=== PATIENT | male | born 1945 | race Caucasian/White ===

== ENCOUNTER 2024-08-17 15:25 | Emergency (ER) | payer MEDICARE, BC, SELFPAY ==
[2024-08-17 15:27] VITALS: BP 154/73
[2024-08-17 15:47] LABS: Urine Albumin Negative (Neg - Trace); Urine Bilirubin Negative (Negative); Urine Character Clear (Clear); Urine Color Yellow; Urine Glucose Negative (Negative); Urine Ketone Negative (Negative); Urine Leukocyte Negative (Negative); Urine Nitrite Negative (Negative); Urine Occult Blood Negative (Negative); Urine Urobilinogen Negative (Neg - 1+)
[2024-08-17 15:51] LABS: % Basophils 0.4 % (0-2); % Eosinophils 2.7 % (0-6); % Immature Granulocytes 0.2 % (0-0.5); % Lymphocytes 18.2 % (20.5-51.1); % Neutrophils 69.5 % (42.2-75.2); Absolute Basophils 0.1 10^3/uL (0-0.2); Absolute Eosinophils 0.3 10^3/uL (0-0.7); Absolute Lymphocytes 2.2 10^3/uL (1.2-3.4); Absolute Monocytes 1.1 10^3/uL (0.1-0.6); Absolute Neutrophils 8.5 10^3/uL (1.4-6.5); Hematocrit 41.5 % (39.0-52.0); Mean Corp Hgb Conc. 33.7 g/dL (33.0-37.0); Mean Corpuscular Hgb 31.2 pg (27.0-31.0); Mean Corpuscular Volume 92.4 fL (80.0-94.0); Mean Platelet Volume 9.8 fL (7.4-10.4); Nucleated Red Blood Cells % 0 % (-); Platelet Count 235 10^3/uL (130-400); Red Blood Cell Count 4.49 10^6/uL (4.70-6.10); Red Cell Dist. Width 13.4 % (11.5-14.5); White Blood Cell Count 12.2 10^3/uL (4.8-10.8)
[2024-08-17 16:04] LABS: ALT (SGPT) 27 U/L (0-50); AST (SGOT) 29 U/L (17-59); Albumin 4.7 g/dl (3.5-5.0); Alkaline Phosphatase 43 U/L (38-126); Blood Urea Nitrogen 14 mg/dl (9-20); Calcium 10.1 mg/dl (8.4-10.2); Carbon Dioxide 32 mmol/L (22-30); Chloride 104 mmol/L (98-107); Glucose 120 mg/dl (70-99); Lipase 136 U/L (23-300); Sodium 142 mmol/L (135-145); Total Bilirubin 1.1 mg/dl (0.2-1.3); eGFR > 60.00
--- NOTE | 2024-08-17 17:30 | ED.GENMED ---
History of Present Illness
General
Chief Complaint: Abdominal Pain
Source: patient
Exam Limitations: none
Time Seen by Provider: 08/17/24 17:19
Nursing documentation reviewed up to this point in time: agreed with
History of Present Illness
History of Present Illness:
78-year-old male presents to the emergency department complaining of lower abdominal pain and right lower back pain since last night. It started when he went to bed. He has never had pain like this before, but states he was told he has a hernia at
one point.
Past History
Past History
ED Past Medical History: Arrthythmia (Atrial fib), CAD, HTN, Hypercholesterolemia and [place]
ED Past Surgical History: Cardiac (CABG)
Social History
Tobacco: Former smoker
Alcohol: Occasional
Drug: None
Personal:
Living: with family
Review of Systems
Review of Systems
Allergies reviewed?: Yes
All Other Systems: Not applicable
Constitutional: Reports no symptoms
EENT: Reports no symptoms
Respiratory: Reports no symptoms
Cardiac: Reports no symptoms
ABD/GI: Reports abdominal pain
: Reports no symptoms
Musculoskeletal: Reports no symptoms
Skin: Reports no symptoms
Neurological: Reports no symptoms
Endocrine: Reports no symptoms
Hematologic/Lymphatic: Reports no symptoms
Psychiatric: Reports no symptoms
Phy Exam
Physical Exam
Physical Exam:
Physical Exam
General: no apparent distress, not acutely ill
Neck: supple. no meningeal signs. normal posterior pharynx
Heart: s1/s2 regular rate and rhythm, no murmur. equal radial
pulses.
HEENT: Pupils equal round reactive to light, EOMI
Lungs: no acute respiratory distress. clear bilaterally
Abdomen: normal bowel sounds. Bilateral lower abdominal tenderness
Neuro: alert and oriented. no focal neurological deficits cranial nerves II through XII intact
Skin: no rash
Psychiatric: well kept. interactive and cooperative
Extremities: no edema. no calf tenderness. negative homans. good distal pulses
Course
Orders/Labs/Results
Orders:
Orders
08/17/24 15:35
Complete Blood Count/With Diff Urgent
Comprehensive Metabolic Panel Urgent
Lipase Urgent
Urinalysis Reflex To Culture Urgent
Date Specimen was Collected: 08/17/24
Time Specimen was Collected: 15:29
08/17/24 17:27
CT Abd/pelvis W Iv Cont Urgent
Comment:
Reason For Exam: bilateral lower abdominal pain since last night
08/17/24 20:10
LevoFLOXacin [Levaquin] 750 mg PO NOW STA
MetroNIDAZOLE [Flagyl] 500 mg PO NOW STA
Abnormal Lab Results
08/17/24
15:35
WBC 12.2 H 10^3/uL
(4.8-10.8)
RBC 4.49 L 10^6/uL
(4.70-6.10)
MCH 31.2 H pg
(27.0-31.0)
Absolute Neuts (auto) 8.5 H 10^3/uL
(1.4-6.5)
Absolute Monos (auto) 1.1 H 10^3/uL
(0.1-0.6)
Lymphocytes % 18.2 L %
(20.5-51.1)
Carbon Dioxide 32 H mmol/L
(22-30)
Glucose 120 H mg/dl
(70-99)
08/17/24 15:35
08/17/24 15:35
Vital Signs
Initial and Last Documented VS:
Initial Vital Signs
Temp Pulse Resp BP Pulse Ox
98.9 F 77 16 154/73 98
08/17/24 15:27 08/17/24 15:27 08/17/24 15:27 08/17/24 15:27 08/17/24 15:27
Last Documented Vital Signs
Temp Pulse Resp BP Pulse Ox
98.9 F 83 18 173/81 96
08/17/24 15:27 08/17/24 19:38 08/17/24 19:38 08/17/24 20:00 08/17/24 20:02
MDM/Problems Addressed
Differential Diagnosis Includes:
Ureteral calculus, appendicitis, diverticulitis
MDM/Problems Addressed:
78-year-old male with acute sigmoid diverticulitis, no perforation or abscess. Treat with Levaquin and Flagyl.
*Radiology
Radiology exam reviewed: radiology read reviewed (CT abdomen pelvis shows acute sigmoid diverticulitis, 6 mm calculus in left posterior urinary bladder lumen)
*Pulse Oximetry
Patient hypoxic: no
*Critical Care Note
Total Time (30-74mins, 75-104mins- exclusive of procedures): Not Applicable
Patient Management
Social determinants of health affecting care: Living situation and Strong social support
Escalation/DeEscalation of care consider admission/obs:
Admit not indicated
ED Attending Note
-
Portions of this chart may have been created with voice recognition software.� Occasional wrong word or��sound alike� substitutions may have occurred due to the inherent limitations of voice recognition software.
Discharge Plan
Departure
Patient Disposition: Home (Routine Discharge)
Date of Disposition: 08/17/24
Time of Disposition: 20:15
Patient with high blood pressure during this ER visit?: Yes
Condition: Good
Discharge Problem:
Sigmoid diverticulitis
Instructions: Diverticulitis (DC), Kidney Stones (DC), BLOOD PRESSURE
Prescriptions:
New
metronidazole 500 mg tablet
500 mg PO TID Qty: 29 0RF
levofloxacin 750 mg tablet
750 mg PO DAILY 9 Days Qty: 9 0RF
No Action
atorvastatin 10 MG tablet
80 mg PO HS
coenzyme Q10 10 MG capsule
10 mg PO HS
omeprazole 40 MG capsule,delayed release(DR/EC)
40 mg PO HS
Nicolasa-C 1,000 mg Tablet
500 mg PO HS
Fish Oil 1,000 mg Softgel
500 units PO HS
alfuzosin 10 MG tablet extended release 24 hr
10 mg PO HS
tadalafil [Cialis] 5 MG tablet
5 mg PO HS
pu-ofb-wtaus-I0-cdtowbc-zhsfzg [Centrum Silver Men] 1 EACH tablet
1 ea PO HS
hydrocodone-acetaminophen 1 TABLET tablet
1 - 2 tab PO Q4HPRN PRN (Reason: pain) Qty: 15 0RF
amoxicillin-pot clavulanate 1 TABLET tablet
1 tab PO Q12 7 Days Qty: 14 0RF
benzocaine-menthol [Cepacol Sore Throat (asia-men)] 1 LOZENGE lozenge
1 edgar PO Q1HPRN PRN (Reason: sore throat) 0RF
apixaban [Eliquis] 5 MG tablet
5 mg PO BID 0RF
acetaminophen 325 MG tablet
650 mg PO Q4HPRN PRN (Reason: mild pain) 0RF
metoprolol succinate 50 MG tablet extended release 24 hr
75 mg PO HS 0RF
fenofibrate nanocrystallized 145 MG tablet
145 mg PO HS 0RF
Referrals:
UNKNOWN - PT DOES,NOT KNOW [Family Provider]
Interventions
Interventions:
*Risk Screen - Suicide Last Done: 08/17/24 15:27
*General Assessment Last Done: 08/17/24 15:27
*Neglect/Abuse Screening Last Done: 08/17/24 15:27
*ED- Fall Risk Assessment Last Done: 08/17/24 15:27
*ED COVID-19 Vaccine History Last Done: 08/17/24 15:27
CA-Bwsufn-Vpertegqay Assessment Last Done: 06/07/25 17:18
Discharge Date and Time
Print Language: UKRAINIAN
[2024-08-17 18:00] VITALS: BP 143/75
[2024-08-17 18:47] VITALS: BP 160/80
[2024-08-17 19:00] VITALS: BP 161/79
[2024-08-17 20:00] VITALS: BP 173/81
[2024-08-17] MEDS: FLAGYL 500 MG PO (20:17)
[2024-08-17] MEDS: LEVAQUIN 750 MG PO (20:17)
== END 2024-08-17 20:21 | disposition home or self-care (01) ==
LOC: EMR 15:25
PROVIDERS: Student in an Organized Health Care Education/Training Program; EMERGENCY PHYSICIAN Emergency Medicine
DX: K57.32 Diverticulitis of large intestine without perforation or abscess without bleeding (principal); I25.10 Atherosclerotic heart disease of native coronary artery without angina pectoris; E78.00 Pure hypercholesterolemia, unspecified; I10 Essential (primary) hypertension; Z95.1 Presence of aortocoronary bypass graft; Z87.891 Personal history of nicotine dependence
CPT/HCPCS: 99284; 74177; 80053; 81003; 83690; 85025; Q9967

== ENCOUNTER 2024-08-20 15:41 | Inpatient (IN) | payer MEDICARE, BC, SELFPAY ==
[2024-08-20 11:14] VITALS: BP 175/76
[2024-08-20] MEDS: DILAUDID 1 MG IV (12:00)
[2024-08-20] MEDS: NSS 1000 IV ×2 (12:00→16:52)
[2024-08-20] MEDS: ZOFRAN 4 MG IV ×2 (12:00→16:49)
[2024-08-20 12:02] VITALS: BP 148/77; BMI 31.5
[2024-08-20 12:02] LABS: % Basophils 0.7 % (0-2); % Eosinophils 4.7 % (0-6); % Immature Granulocytes 0.1 % (0-0.5); % Lymphocytes 23.6 % (20.5-51.1); % Monocytes 8.5 % (1.7-9.3); % Neutrophils 62.4 % (42.2-75.2); Absolute Basophils 0.1 10^3/uL (0-0.2); Absolute Eosinophils 0.4 10^3/uL (0-0.7); Absolute Lymphocytes 1.7 10^3/uL (1.2-3.4); Absolute Monocytes 0.6 10^3/uL (0.1-0.6); Absolute Neutrophils 4.6 10^3/uL (1.4-6.5); Hematocrit 44.4 % (39.0-52.0); Hemoglobin 14.8 g/dL (13.0-18.0); Mean Corp Hgb Conc. 33.3 g/dL (33.0-37.0); Mean Corpuscular Hgb 30.6 pg (27.0-31.0); Mean Corpuscular Volume 91.7 fL (80.0-94.0); Mean Platelet Volume 9.9 fL (7.4-10.4); Nucleated Red Blood Cells % 0 % (-); Platelet Count 261 10^3/uL (130-400); Red Blood Cell Count 4.84 10^6/uL (4.70-6.10); Red Cell Dist. Width 13.2 % (11.5-14.5); White Blood Cell Count 7.4 10^3/uL (4.8-10.8)
--- NOTE | 2024-08-20 12:03 | ED.GENMED ---
History of Present Illness
General
Chief Complaint: Abdominal Pain
Source: patient
Exam Limitations: none
Time Seen by Provider: 08/20/24 11:32
Nursing documentation reviewed up to this point in time: agreed with
History of Present Illness
History of Present Illness:
78 y/o M with AF on eliquis, HTN, HLD
here 3 days ago for diverticulitis, lower abd pain
he was put on levaquin, flagyl and he took meds as instructed on 08/18 but then he really felt wiped out yesterday, nauesated and didn't take the flagyl and only the levaquin
he has not had diarrhea
low appetite and nausea
ate some yesterday minimally (soup)
says his pain is worse today with lower abd and now back pain
no dysuria, hematuria
Past History
Past History
ED Past Medical History: Arrthythmia (Atrial fib), CAD, HTN, Hypercholesterolemia and [place]
ED Past Surgical History: Cardiac (CABG)
Social History
Tobacco: Former smoker
Alcohol: Occasional
Drug: None
Personal:
Living: with family
Review of Systems
Review of Systems
Allergies reviewed?: Yes
All Other Systems: Not applicable
Phy Exam
Physical Exam
Physical Exam:
GENERAL: Alert , in no apparent distress
EYE: pupils equal and reactive
NECK: Supple
ENT: o/p clr, mmm.
CARDIAC: Regular rate and rhythm .
LUNGS: Clear breath sounds bilaterally, no acute respiratory distress, no wheezes/rales/rhonchi
ABDOMEN: Soft, mod lower abd tendrness, diffuse abd tendenress mild; mild voluntary guarding; no rebound
NEUROLOGICAL: Alert and oriented, no focal neuro deficits
SKIN: Warm and dry, skin intact.
MUSCULOSKELETAL: No edema, well perfused.
PSYCH: Normal and appropriate interaction.
Course
Orders/Labs/Results
Orders:
Orders
08/20/24 11:45
CT Abd/Pel (IV only)-DH only Urgent
Comment:
Reason For Exam: WORSENING LOW ABD PAIN, DIVERTIC
0.9% Sodium Chloride 1000 ml [Nss] 1,000 ml IV BOLUS
HYDROmorphone [Dilaudid] 1 mg IV NOW STA
Ondansetron Injectable [Zofran] 4 mg IV NOW STA
08/20/24 11:55
Complete Blood Count/With Diff Urgent
Comprehensive Metabolic Panel Urgent
Lactic Acid Urgent
Lipase Urgent
08/20/24 13:59
Urinalysis Reflex To Culture Urgent
Date Specimen was Collected: 08/20/24
Time Specimen was Collected: 11:51
Urine Microscopic Reflex Cult Urgent
Urine Culture Urgent
SHADI Source: U
Specimen Description:
Date Specimen was Collected: 08/20/24
Time Specimen was Collected: 11:51
08/20/24 14:37
Ampicillin/Sulbactam 3 G [Unasyn] 3 gm 0.9% Sodium Chloride 100 ml [Nss] 100 ml IV NOW
08/20/24 15:17
Admit/Transfer Patient As Directed
Co-Sign Provider:
Level of Care: Inpatient admission
Assign to:: Medical/Surgical
Physician / Group: [email or web address]
Diagnosis: Acute uncomplicated diverticulitis, Nausea due to Metronidazole
Reason for Hospitalization: Acute uncomplicated diverticulitis
Nausea is likely due to Metronidazole
lower abdominal pain
Expected length of stay greater than two midnights?: Yes
ELOS- Estimated Length of Stay in days: 3
I certify the patient meets the requirements for IP care: Yes
08/20/24 15:19
Code Status As Directed
Resuscitation Status: Full Code
Abnormal Lab Results
08/20/24 08/20/24
11:55 13:59
Glucose 154 H mg/dl
(70-99)
Leukocyte Esterase Rfl 1+ A
(Negative)
Urine Albumin (Reflex) 1+ A
(Neg - Trace)
08/20/24 11:55
08/20/24 11:55
Vital Signs
Initial and Last Documented VS:
Initial Vital Signs
Temp Pulse Resp BP Pulse Ox
36.9 C 68 20 175/76 96
08/20/24 11:14 08/20/24 11:14 08/20/24 11:14 08/20/24 11:14 08/20/24 11:14
Last Documented Vital Signs
Temp Pulse Resp BP Pulse Ox
36.9 C 64 18 148/77 92
08/20/24 11:14 08/20/24 12:02 08/20/24 12:02 08/20/24 12:02 08/20/24 12:15
MDM/Problems Addressed
Differential Diagnosis Includes:
divertic, perf
MDM/Problems Addressed:
crystal rose 78 y/o M h/o CABG, af/pacer on eliquis
came in on sat for lower abd pain
ct showed acute sig divertic
given levaquin/flagyl
says he has worse pain lower back and lower abd and nausea/and feels like he cannot tolearte the abx
no fever
wbc normal cr normal
mod tenderness in suprapubic region
so i did rescan to be sure no perf; the divertic looks stable; they had seen a calcification 6 mm that looked to be in the bladder on the 1st scan
this radiologist thinks it's actually L UVJ but nonobstructing; could be contributing to pain worsening
d/w urologist dr. roberts who didn't thnk that the 6 mm distal stone would be causing the abd pain
likely due to divertic
reassessed, pt still having nauesa/pain
[facility] admit
unasyn
*Critical Care Note
Total Time (30-74mins, 75-104mins- exclusive of procedures): Not Applicable
ED Attending Note
-
Portions of this chart may have been created with voice recognition software.� Occasional wrong word or��sound alike� substitutions may have occurred due to the inherent limitations of voice recognition software.
Discharge Plan
Departure
Patient Disposition: Admit
Date of Disposition: 08/20/24
Time of Disposition: 14:26
Admit to: Med/Surg
Presentation/result/management discussed w/ accepting MD/DO: Hospitalist
Condition: Fair
Covid-19: Not Applicable
Discharge Problem:
Failure of outpatient treatment, Diverticulitis
Interventions
Interventions:
*Risk Screen - Suicide Last Done: 08/20/24 11:14
*General Assessment Last Done: 08/20/24 11:14
*Neglect/Abuse Screening Last Done: 08/20/24 11:14
*ED- Fall Risk Assessment Last Done: 08/20/24 12:06
JM-Bylwgg-Ptmisyheex Assessment Last Done: 08/20/24 12:02
[2024-08-20 12:14] LABS: ALT (SGPT) 30 U/L (0-50); AST (SGOT) 37 U/L (17-59); Albumin 4.6 g/dl (3.5-5.0); Alkaline Phosphatase 51 U/L (38-126); Blood Urea Nitrogen 16 mg/dl (9-20); Calcium 9.5 mg/dl (8.4-10.2); Carbon Dioxide 24 mmol/L (22-30); Chloride 106 mmol/L (98-107); Estimated Creatinine Clearance 84 ml/min; Glucose 154 mg/dl (70-99); Lipase 121 U/L (23-300); Potassium 4.4 mmol/L (3.5-5.1); Sodium 140 mmol/L (135-145); eGFR > 60.00
[2024-08-20 12:16] LABS: Lactic Acid 0.9 mmol/L (0.7-2.0)
[2024-08-20 14:06] LABS: Urine Albumin 1+ (Neg - Trace); Urine Bilirubin Negative (Negative); Urine Character Clear (Clear); Urine Color Yellow; Urine Glucose Negative (Negative); Urine Ketone Negative (Negative); Urine Leukocyte 1+ (Negative); Urine Nitrite Negative (Negative); Urine Occult Blood Negative (Negative); Urine Urobilinogen Negative (Neg - 1+)
[2024-08-20 14:25] LABS: Urine Red Blood Cell 0-2 /HPF (0-2); Urine Squamous Cell 0-2 /LPF (Few)
[2024-08-20] MEDS: UNASYN IV ×2 (15:05→22:01)
--- NOTE | 2024-08-20 15:12 | HPS.HSE ---
Family Physician
-
Family Physician: Solomon Parker
Chief Complaint
-
nausea, poor appetite
History of Present Illness
HPI
78F HX CADS/CABG,ND, A Fib , chr Eliquis, HTN, HLD seen atER 3 days ago Dxed diverticulitis started PO LVQ/Flagyl.
Retured to ER nausea , not taking Flagyl but tool LVQ.
- denied dirrhea
- associated with poor appetite
Medical History
Past Medical History
Past Medical History: Reports Arrhythmia ( Prx AF on Eliquis ), CAD, HTN, Hypercholesterolemia and [place]
Past Surgical History: Reports Cardiac (CABG )
Social History
Tobacco: Former Smoker
Alcohol: Occasional
Family History
Family History: Not pertinent
Allergies / Home Medications
Allergies reflects when Allergies were last updated in [facility].
Home Medications with original date entered in [facility]
Allergy/Medication List:
Allergies
Allergy/AdvReac Type Severity Reaction Status Date / Time
No Known Allergies Allergy Verified 08/20/24 11:16
Home Medications
ascorbate calcium (vitamin C) 500 mg tablet 500 mg PO DAILY ##0 11/26/17
omega 6-suj-nsh-fish oil 1,000 mg (120 mg-180 mg) capsule (Fish Oil) 1 cap PO DAILY ##0 11/26/17
omeprazole 40 mg capsule,delayed release 40 mg PO HS 11/26/17
tadalafil 5 mg tablet (Cialis) 5 mg PO DAILYPRN PRN ed 07/23/20
acetaminophen 325 mg tablet 650 mg (2 x 325 mg) PO Q4HPRN PRN mild pain 07/28/20
fenofibrate nanocrystallized 145 mg tablet 145 mg PO HS 07/28/20
apixaban 5 mg tablet (Eliquis) 5 mg PO BID 08/20/24
atorvastatin 80 mg tablet (Lipitor) 80 mg PO QPM 08/20/24
cholecalciferol (vitamin D3) 10 mcg (400 unit) tablet (Vitamin D3) 10 mcg PO DAILY 08/20/24
coQ10 (ubiquinol) 100 mg capsule 100 mg PO DAILY 08/20/24
metformin 500 mg tablet,extended release 24 hr 500 mg PO DAILY 08/20/24
metoprolol tartrate 50 mg tablet 50 mg PO DAILY 08/20/24
tamsulosin 0.4 mg capsule (Flomax) 0.4 mg PO QPM 08/20/24
therapeutic multivitamin 1 tab PO DAILY 08/20/24
Review of Systems
-
Constitutional: Reports No Symptoms
EENT: Reports No Symptoms
Respiratory: Reports No Symptoms
Cardiac: Reports No Symptoms
Abdomen/GI: Reports See HPI
: Reports No Symptoms
Musculoskeletal: Reports No Symptoms
Skin: Reports No Symptoms
Neurological: Reports No Symptoms
Endocrine: Reports No Symptoms
Hematologic/Lymphatic: Reports No Symptoms
Psych: Reports No Symptoms
Physical Exam
Vital Signs
Vital Signs
Temp Pulse Resp BP Pulse Ox
98.5 F 64 18 148/77 92
08/20/24 11:14 08/20/24 12:02 08/20/24 12:02 08/20/24 12:02 08/20/24 12:15
Physical Exam
General: Well Developed, Well Nourished and No Apparent Distress
HEENT: NormoCephalic, Moist mucous membranes and Atraumatic
Respiratory: Clear
Cardiac: S1/S2 and Regular Rhythm; No Murmur or Rub
GI: Soft, Non Distended, Normal Bowel Sounds and Tender (Soft, mod lower abd tendrness, diffuse abd tendenress mild; mild voluntary guarding; no rebound); No Organomegaly
Rectal: Deferred by Provider
Musculoskeletal: No Clubbing, No Cyanosis and No Edema
Skin: No Rash
Neuro: Nonfocal/grossly intact
Laboratory Results
-
08/20/24 11:55
08/20/24 11:
Laboratory Results
Lactic Acid 0.9 mmol/L (0.7-2.0) 08/20/24:
Total Bilirubin 1.0 mg/dl (0.2-1.3) 08/20/24:
AST 37 U/L (17-59) 08/20/24:
ALT 30 U/L (0-50) 08/20/24 11:
Alkaline Phosphatase 51 U/L (38-126) 08/20/24:
Lipase 121 U/L (23-300) 08/20/24:
Data Reviewed
-
CT Scan: Report Reviewed by me
Medical Tests (Nuc Med, Echo, EKG etc): Report Reviewed by me
Lab Data: Labs Reviewed by me
Old Records: Reviewed
Impression/Plan
-
Admission labs
unremarkable CBC and CMP
Normal lipase
Unremarkable UA
CT Abd/Pel (IV only)-DH only
- CT findings compatible with diverticulitis involving the sigmoid colon. This has a similar appearance to examination of August 17, 2024, based on CT appearance.
- No evidence for abscess.
- No evidence for free intraperitoneal air.
- 6 mm calcification in the region of the left posterior bladder, unchanged from previous examination.
On postcontrast delayed images, this appears to be a nonobstructing left ureteral vesicle junction calculus, and could result in additional left lower quadrant symptoms.
- 2 mm nephrolith is present in the central lateral left mid kidney.
- Bilateral fat-containing inguinal hernias, with no evidence for bowel herniation.
ASSESSMENT & PLAN
Pending Rx reconciliation
Acute uncomplicated diverticulitis
Nausea is likely due to Metronidazole
Afebrile and nl WCC
- NPO except Meds
- IVF
- switch to IV Unasyn in place of LVQ and Flagyl
- trend T and WCC
6 mm calcification in the region of the left posterior bladder,
- Radiologist thinks it's actually L UVJ but nonobstructing
- ER d/w Urologist Dr. Duque suggest 6 mm distal stone is not origin of current abdominal pian
HX A Fib : cont. chr Eliquis
DMT2
- Hold metformin
- add ISS low
HLD
- cont Eliquis
- Hold of atorvastatin, fenofibrate
BPH
- on Flomax
Known HX : stable
HX CADS/CABG
HX M
Benign HTN
DVT Px: on [employer] Eliquis for HX Prx AF
Full code
IP MS
[2024-08-20 17:01] VITALS: BP 160/72
[2024-08-20 17:03] VITALS: BMI 30.5
[2024-08-20] MEDS: DILAUDID 0.25 MG IV ×2 (17:20→22:25)
[2024-08-20] MEDS: FLOMAX 0.4 MG PO (17:20)
--- NOTE | 2024-08-20 17:24 | PTCARENOTE ---
pt admitted from ED arrived to the floor nauseous and vomiting. PRN zofran administered. Alert and oriented x3. LCTA B/L on RA abd round obese. aside from nausea, pt also complains of acute on chronic back pain. See MAY. cont b&b. skin CDI no edema
+PP. IVF through right AC. CB in reach, educated on use.
[2024-08-20 17:38] LABS: Glucose - Point of Care 100 mg/dl (70-99)
[2024-08-20 19:00] VITALS: BP 162/85
[2024-08-20] MEDS: TYLENOL 650 MG PO (19:14)
[2024-08-20] MEDS: ELIQUIS 5 MG PO (19:14)
--- NOTE | 2024-08-20 19:58 | CONS.URO ---
Consultation
-
Date/Time Consultation Performed: 08/20/241999
Performing Provider: Peffer
Reason for Consultation: Ureteral stone
Medical History
History of Present Illness
78M without prior kidney stones
History of BPH on tamsulosin
Presented to ER 08/17/24 with acute abdominal pain and leukocytosis and was found to have acute diverticulitis
He was readmitted 08/20 with nausea and poor appetite, worsened abdominal pain and new back pain
Repeat CT 08/20 showed persistent diverticulitis
Redemonstrated was a 6mm L distal ureteral stone which was more apparent on repeat imaging with delayed film after IV contrast
No hydronephrosis and contrast passes to bladder
He denies hematuria, dysuria, increased urinary frequency or urgency, pinching or pain sensation in penis/groin
He notes his pain as being generalized through his mid and low abdomen
The back pain he noted is located in the midline low back in the region of his chronic back pain
No pain in flank/CVA
Past Medical History
Past Medical History: Other (Arrthythmia (Atrial fib), CAD, HTN, Hypercholesterolemia and [place])
Past Surgical History: Other (CABG)
Social History
Tobacco: Former Smoker
Alcohol: Occasional
Personal:
Living: With Family
Family History
Family History: Reviewed & Not Pertinent
Allergies/Home Medications
Allergies
Allergy/AdvReac Type Severity Reaction Status Date / Time
No Known Allergies Allergy Verified 08/20/24 11:16
Home Medications
�Medication �Instructions �Recorded �Confirmed �Type
ascorbate calcium (vitamin C) 500 500 mg PO DAILY ##0 11/26/17 08/20/24 History
mg tablet
omega 0-cfk-dnt-fish oil 1,000 mg 1 cap PO DAILY ##0 11/26/17 08/20/24 History
(120 mg-180 mg) capsule (Fish Oil)
omeprazole 40 mg capsule,delayed 40 mg PO HS 11/26/17 08/20/24 History
release
tadalafil 5 mg tablet (Cialis) 5 mg PO DAILYPRN PRN ed 07/23/20 08/20/24 History
acetaminophen 325 mg tablet 650 mg (2 x 325 mg) PO Q4HPRN PRN 07/28/20 08/20/24 Rx
mild pain
fenofibrate nanocrystallized 145 145 mg PO HS 07/28/20 08/20/24 Rx
mg tablet
apixaban 5 mg tablet (Eliquis) 5 mg PO BID 08/20/24 08/20/24 History
atorvastatin 80 mg tablet (Lipitor) 80 mg PO QPM 08/20/24 08/20/24 History
cholecalciferol (vitamin D3) 10 10 mcg PO DAILY 08/20/24 08/20/24 History
mcg (400 unit) tablet (Vitamin D3)
coQ10 (ubiquinol) 100 mg capsule 100 mg PO DAILY 08/20/24 08/20/24 History
metformin 500 mg tablet,extended 500 mg PO DAILY 08/20/24 08/20/24 History
release 24 hr
metoprolol tartrate 50 mg tablet 50 mg PO DAILY 08/20/24 08/20/24 History
tamsulosin 0.4 mg capsule (Flomax) 0.4 mg PO QPM 08/20/24 08/20/24 History
therapeutic multivitamin 1 tab PO DAILY 08/20/24 08/20/24 History
Physical Exam
Vital Signs
Vital Signs
Temp Pulse Resp BP Pulse Ox
98.8 F 65 18 160/72 97
08/20/24 17:01 08/20/24 17:01 08/20/24 17:01 08/20/24 17:01 08/20/24 17:01
Lab / Testing Results
Laboratory Results
08/20/24 11:55
08/20/24 11:55
Physical Exam
General: Well Developed, Well Nourished and No Apparent Distress
Respiratory: Clear and Non Labored Respirations
GI: Soft, Non Distended and Tender (mild tender diffusely)
Genito-urinary: No Costovertebral Tend
Neuro: AO x 3
Psych: Calm and Intact Judgement
Assessment / Plan
-
78M with pain and nausea from acute diverticulitis
Incidentally found to have nonobstructing L distal ureteral stone
- Low suspicion that distal ureteral stone contributes to patient's ongoing symptoms: no obstruction/hydro on CT, passage of IV contrast through entire ureter on CT, back pain located in low midline at site of chronic back pain (not CVA/flank), no
common urinary/voiding/groin symptoms of an impacted distal ureteral stone, bland urinalysis
- Would not recommend any intervention unless persistent pain and abdominal symptoms exceed that expected for diverticulitis treatment course
- Otherwise recommend outpatient follow up for further discussion of ureteral stone and likely eventual ureteroscopic intervention after recovering from bowel infection
[2024-08-20 23:20] VITALS: BP 157/77
[2024-08-20 23:51] LABS: Glucose - Point of Care 99 mg/dl (70-99)
[2024-08-21] MEDS: UNASYN IV ×4 (04:36→21:37)
[2024-08-21 05:19] VITALS: BMI 30.4
[2024-08-21 05:34] LABS: Glucose - Point of Care 86 mg/dl (70-99)
[2024-08-21 07:37] LABS: Hematocrit 38.8 % (39.0-52.0); Hemoglobin 13.5 g/dL (13.0-18.0); Mean Corp Hgb Conc. 34.8 g/dL (33.0-37.0); Mean Corpuscular Hgb 31.3 pg (27.0-31.0); Mean Platelet Volume 9.6 fL (7.4-10.4); Platelet Count 218 10^3/uL (130-400); Red Blood Cell Count 4.31 10^6/uL (4.70-6.10); Red Cell Dist. Width 13.2 % (11.5-14.5); White Blood Cell Count 6.7 10^3/uL (4.8-10.8)
[2024-08-21 07:39] VITALS: BP 139/79
[2024-08-21 08:02] LABS: Blood Urea Nitrogen 14 mg/dl (9-20); Calcium 8.7 mg/dl (8.4-10.2); Carbon Dioxide 26 mmol/L (22-30); Chloride 108 mmol/L (98-107); Estimated Creatinine Clearance 93 ml/min; Glucose 107 mg/dl (70-99); Potassium 3.9 mmol/L (3.5-5.1); Sodium 141 mmol/L (135-145); eGFR > 60.00
--- NOTE | 2024-08-21 08:30 | W.PN.URO.CBU ---
Today's Communication / Plan
-
- Prefer to avoid stone surgery in the setting of active diverticulitis. Would not recommend any intervention unless persistent pain and abdominal symptoms exceed that expected for diverticulitis treatment course
- Otherwise recommend outpatient follow up for further discussion of ureteral stone and likely eventual ureteroscopy/lithotripsy after recovering from bowel infection
Assessment / Plan
-
78M with pain and nausea from acute diverticulitis
Incidentally found to have nonobstructing L distal ureteral stone
- Low suspicion that distal ureteral stone contributes to patient's ongoing symptoms: no obstruction/hydro on CT, passage of IV contrast through entire ureter on CT, back pain located in low midline at site of chronic back pain (not CVA/flank), no
common urinary/voiding/groin symptoms of an impacted distal ureteral stone, bland urinalysis
- Prefer to avoid stone surgery in the setting of active diverticulitis. Would not recommend any intervention unless persistent pain and abdominal symptoms exceed that expected for diverticulitis treatment course
- Otherwise recommend outpatient follow up for further discussion of ureteral stone and likely eventual ureteroscopy/lithotripsy after recovering from bowel infection
Diagnosis
-
Date of Service: August 21, 2024
-
Patient Diagnosis:
Diverticulitis
nonobstructing L distal ureteral stone
Subjective
-
persistent diffuse abdominal pain
no flank pain
Objective
-
Vital Signs
Temp Pulse Resp BP Pulse Ox
98.5 F 69 16 139/79 96
08/21/24 07:39 08/21/24 07:39 08/21/24 07:39 08/21/24 07:39 08/21/24 07:39
Intake and Output
08/20/24 08/21/24 08/22/24
06:59 06:59 06:59
Intake Total 0 / 0
Output Total 800 / 800
Balance -800 / -800
Intake:
Oral fluids 0 / 0
IV fluids (Total) 0 / 0
IV piggybacks 0 / 0
Output:
Urine, Voided 800 / 800
Laboratory Results
08/21/24 07:15
08/21/24 07:15
Physical Exam
-
General - well developed, well nourished, no acute distress
Chest - clear
Abdomen - soft, non-tender
No CVAT
--- NOTE | 2024-08-21 08:39 | CON.CRS ---
Consultation
-
Date/Time Consultation Requested: 08/21/2024, 06:25
Date/Time Consultation Performed: 08/21/2024, 08:30
Requesting Provider: Kindra Willis MD
Performing Provider: Barrie Payne MD
Reason for Consultation: diverticulitis
Medical History
-
Chief Complaint: abdominal pain
History of Present Illness:
78yo male, with a PMH of atrial fibrillation and TN (on eliquis), presents with five days of abdominal pain and nausea. He states he has never had pain like this before. He went to the ER a few days ago, and the CT showed sigmoid diverticulitis. He
was given oral po antibiotics. However, he continued to have abdominal pain despite antibiotics, with associated nausea, and came back to the ER. He states currently his pain is a little better, about a 6/10. He denies blood in his stool. Denies
diarrhea. He is having flatus. His last scope was about 10 years ago at [facility] with Dr. Simmons. He believes he had polyps at that time. He believes his father had colon cancer but he isn't sure. He is on eliquis and his last dose was last
night. Currently he states he feels 'a little bit better, pain now 6/10'.
CT A/P showed uncomplicated sigmoid diverticulitis. He was admitted with IV antibiotics and NPO status. WBC today is 6.7. He has remained afebrile. We have been consulted for surgical opinion given his diverticulitis.
Past Medical History
Past Medical History: Arrhythmias (afib), CAD, HTN, Hypercholesterolemia and TN
Past Surgical History: Cardiac (CABG)
Social History
Tobacco: Former Smoker
Alcohol: Occasional
Family History
Family History: Cancer (Father ?colon cancer)
Allergies / Home Medications
Allergy/AdvReac Type Severity Reaction Status Date / Time
No Known Allergies Allergy Verified 08/20/24 11:16
�Medication �Instructions �Recorded �Confirmed �Type
ascorbate calcium (vitamin C) 500 500 mg PO DAILY ##0 11/26/17 08/20/24 History
mg tablet
omega 5-kkr-nbs-fish oil 1,000 mg 1 cap PO DAILY ##0 11/26/17 08/20/24 History
(120 mg-180 mg) capsule (Fish Oil)
omeprazole 40 mg capsule,delayed 40 mg PO HS 11/26/17 08/20/24 History
release
tadalafil 5 mg tablet (Cialis) 5 mg PO DAILYPRN PRN ed 07/23/20 08/20/24 History
acetaminophen 325 mg tablet 650 mg (2 x 325 mg) PO Q4HPRN PRN 07/28/20 08/20/24 Rx
mild pain
fenofibrate nanocrystallized 145 145 mg PO HS 07/28/20 08/20/24 Rx
mg tablet
apixaban 5 mg tablet (Eliquis) 5 mg PO BID 08/20/24 08/20/24 History
atorvastatin 80 mg tablet (Lipitor) 80 mg PO QPM 08/20/24 08/20/24 History
cholecalciferol (vitamin D3) 10 10 mcg PO DAILY 08/20/24 08/20/24 History
mcg (400 unit) tablet (Vitamin D3)
coQ10 (ubiquinol) 100 mg capsule 100 mg PO DAILY 08/20/24 08/20/24 History
metformin 500 mg tablet,extended 500 mg PO DAILY 08/20/24 08/20/24 History
release 24 hr
metoprolol tartrate 50 mg tablet 50 mg PO DAILY 08/20/24 08/20/24 History
tamsulosin 0.4 mg capsule (Flomax) 0.4 mg PO QPM 08/20/24 08/20/24 History
therapeutic multivitamin 1 tab PO DAILY 08/20/24 08/20/24 History
Review of Systems
-
History Source: Patient
Abdomen/GI: Abdominal Pain and Nausea
A 10 point review of systems was completed, and was negative except as per HPI.
Physical Exam
Vital Signs
Temp 98.5 F 08/21/24 07:39
Pulse 69 08/21/24 07:39
Resp Rate 16 08/21/24 07:39
Blood pressure 139/79 08/21/24 07:39
SaO2 96 08/21/24 07:39
08/20/24 08/21/24 08/22/24
06:59 06:59 06:59
Actual Weight 98.968 kg
Body Mass Index (BMI) 30.4
Lab Results / Allergies
08/21/24 07:15
08/21/24 07:15
WBC 6.7 10^3/uL (4.8-10.8) 08/21/24 07:15
Hgb 13.5 g/dL (13.0-18.0) 08/21/24 07:15
Hct 38.8 % (39.0-52.0) L 08/21/24 07:15
Plt Count 218 10^3/uL (130-400) 08/21/24 07:15
Abs Immat Gran (auto) 0.0 10^3/uL (0-0.05) 08/20/24 11:55
Neutrophils % 62.4 % (42.2-75.2) 08/20/24 11:55
Allergy/AdvReac Type Severity Reaction Status Date / Time
No Known Allergies Allergy Verified 08/20/24 11:16
Physical Exam
General: Well Developed, Well Nourished and No Apparent Distress
GI: Soft, Non Distended and Tender (RLQ - moderate, suprapubic/LLQ - mild to moderate)
Skin: Warm and Dry
Neuro: AO x 3
Psych: Calm
Data Reviewed
-
CT Scan: Image Personally Visualized and interpreted, Report Reviewed by me and Discussed with Patient
Labs: Labs Reviewed by me, Discussed with Physician and Discussed with Patient
Old Records: Reviewed
Assessment / Plan
-
Assessment: 78yo male with abdominal pain for five days, found to have uncomplicated sigmoid diverticulitis, first attack
Plan:
-Remain NPO with IVFs given tenderness
-Continue IV antibiotics
-Stop all laxatives
-Hold Eliquis
-No plans for surgery today, if he continues to worsen, will need a colectomy with colostomy
-Eventual colonoscopy as an outpatient
-Trend labs/exam, will follow
[2024-08-21] MEDS: LOPRESSOR 50 MG PO (08:44)
[2024-08-21] MEDS: PROTONIX 20 MG PO (08:46)
[2024-08-21 09:06] LABS: Glycohemoglobin (HgbA1c) 6.7 % (4.0-5.6)
--- NOTE | 2024-08-21 09:27 | W.PN.HOSP.TC ---
Addendum entered and electronically signed by Kristie Morales MD 08/23/24 11:50:
Physical Exam
-
General: Well Developed, No Apparent Distress and Comfortable
HEENT: Normocephalic and Atraumatic
Respiratory: Clear to Auscultation
Cardiac: Regular Rhythm and S1/S2
GI: Soft, Nondistended and not Tender (lower side)
Genito-urinary: Clear Urine; Negative Patton
Musculoskeletal: No Clubbing, No Cyanosis and No Edema
Skin: Warm and Dry
Neuro: AO x 3 and Nonfocal/Grossly Intact
Psych: Calm and Intact Judgement/Insight
Original Note:
Today's Communication/Plan
-
No EKG done on admission, will order one
f/w surgery
IVF
IV Abx
Assessment / Plan
Assessment / Plan
A/p:
# Acute uncomplicated diverticulitis
still feels abdominal pain but no nausea
He feels thirsty
WIll c/w IVF, increase rate
c/w iV Abx
Bowel rest with IVF
Pain medication with Tylenol & Dilaudid.
Appreciate colorectal help
#6 mm calcification in the region of the left posterior bladder,
- Radiologist thinks it's actually L UVJ but nonobstructing
- D/W Urologist Dr. Duque suggest 6 mm distal stone is not origin of current abdominal pain, plan for OP management.
# HX Paroxysmal A Fib
No EKG done on admission, will order one
Surgery held Eliquis, rate is regular
DMT2
- Hold metformin
- add ISS low
HLD
- Hold of atorvastatin, fenofibrate
BPH
- on Flomax
Known HX : stable
HX CADS/CABG
HX M
Benign HTN
Total time spent to see the patient, examine the patient, review data and lab result, discuss treatment plan with patient, nursing staff around 55 minutes
Anticipated Discharge: > 48 hours
Subjective/Interval History
-
Date of Service: August 21, 2024
No chest pain or sob
No fevers
Objective Data
-
Labs:
Laboratory Results
08/21/24
07:15
WBC 6.7
Hgb 13.5
Hct 38.8 L
Plt Count 218
Sodium 141
Potassium 3.9
Chloride 108 H
Carbon Dioxide 26
BUN 14
Creatinine 0.8
Glucose 107 H
Calcium 8.7
Vital Signs:
Vital Signs
Temp Pulse Resp BP Pulse Ox
98.5 F 69 16 139/79 96
08/21/24 07:39 08/21/24 08:44 08/21/24 07:39 08/21/24 08:44 08/21/24 07:39
I&O
08/20/24 08/21/24 08/22/24
06:59 06:59 06:59
Intake Total 0 / 0
Output Total 800 / 800
Balance -800 / -800
Physical Exam
-
General: Well Developed, No Apparent Distress and Comfortable
HEENT: Normocephalic and Atraumatic
Respiratory: Clear to Auscultation
Cardiac: Regular Rhythm and S1/S2
GI: Soft, Nondistended and Tender (lower side)
Genito-urinary: Clear Urine; Negative Patton
Musculoskeletal: No Clubbing, No Cyanosis and No Edema
Skin: Warm and Dry
Neuro: AO x 3 and Nonfocal/Grossly Intact
Psych: Calm and Intact Judgement/Insight
[2024-08-21] MEDS: NSS 1000 IV ×2 (11:01→21:37)
[2024-08-21] MEDS: DILAUDID 0.25 MG IV (11:05)
[2024-08-21] MEDS: TYLENOL 650 MG PO (11:29)
--- NOTE | 2024-08-21 11:43 | CM ---
Patient seen at bedside
IA Completed
DX: diverticulitis
IVF, IV antibiotics
Lives with in 2 story home, 1 step to enter, flight to bed/bath
Denies DME
PLOF: independent w/o device
Denies insecurities
PCP: Solomon Parker
Pharmacy: [facility]
PLAN: Home, when medically stable, no needs anticipated
[2024-08-21 12:00] LABS: Glucose - Point of Care 113 mg/dl (70-99)
[2024-08-21 15:26] VITALS: BP 164/82
[2024-08-21] MEDS: FLOMAX 0.4 MG PO (17:55)
[2024-08-21 18:15] VITALS: BP 153/75
[2024-08-21 18:40] LABS: Glucose - Point of Care 74 mg/dl (70-99)
[2024-08-21] MEDS: HEPARIN 5000 UNITS SC (20:15)
[2024-08-21] MEDS: NSS IV (20:22)
[2024-08-22 00:16] LABS: Glucose - Point of Care 69 mg/dl (70-99)
[2024-08-22] MEDS: DEXTROSE 50% SYRINGE 12.5 GRAMS IV (00:18)
[2024-08-22 00:25] VITALS: BP 140/62
[2024-08-22 00:38] LABS: Glucose - Point of Care 122 mg/dl (70-99)
[2024-08-22 02:59] LABS: Glucose - Point of Care 89 mg/dl (70-99)
[2024-08-22] MEDS: UNASYN IV ×4 (03:51→21:48)
[2024-08-22] MEDS: NSS 1000 IV (05:14)
[2024-08-22 05:17] LABS: Glucose - Point of Care 79 mg/dl (70-99)
--- NOTE | 2024-08-22 05:36 | PTCARENOTE ---
Patients midnight blood glucose resulted at 69. Pt. asymptomatic. Pt. NPO. PRN D50 administered. See MAR. 15 minutes later, blood glucose rechecked per protocol and resulted at 122. 2 hours later blood glucose rechecked per protocol and resulted at
89. MATI Levy notified, this RN suggested changing IVF. No new orders at this time. 2 hour recheck per protocol resulted at 79. Plan of care ongoing. Call [facility] within reach.
[2024-08-22 06:00] VITALS: BMI 30.8
[2024-08-22 07:00] VITALS: BP 176/86
[2024-08-22 07:29] LABS: Hematocrit 38.1 % (39.0-52.0); Hemoglobin 12.9 g/dL (13.0-18.0); Mean Corp Hgb Conc. 33.9 g/dL (33.0-37.0); Mean Corpuscular Hgb 30.8 pg (27.0-31.0); Mean Corpuscular Volume 90.9 fL (80.0-94.0); Mean Platelet Volume 9.8 fL (7.4-10.4); Platelet Count 203 10^3/uL (130-400); Red Blood Cell Count 4.19 10^6/uL (4.70-6.10); Red Cell Dist. Width 13.1 % (11.5-14.5); White Blood Cell Count 5.9 10^3/uL (4.8-10.8)
[2024-08-22 08:06] LABS: Blood Urea Nitrogen 11 mg/dl (9-20); Calcium 8.1 mg/dl (8.4-10.2); Carbon Dioxide 23 mmol/L (22-30); Chloride 111 mmol/L (98-107); Estimated Creatinine Clearance 106 ml/min; Glucose 84 mg/dl (70-99); Potassium 3.8 mmol/L (3.5-5.1); Sodium 140 mmol/L (135-145); eGFR > 60.00
[2024-08-22] MEDS: LOPRESSOR 50 MG PO (08:30)
[2024-08-22] MEDS: HEPARIN 5000 UNITS SC (08:30)
[2024-08-22] MEDS: PROTONIX 20 MG PO (08:31)
[2024-08-22] MEDS: TYLENOL 650 MG PO ×3 (08:40→22:30)
--- NOTE | 2024-08-22 08:56 | W.PN.CRS1 ---
Today's Communication / Plan
-
advance diet to clears
possible regular diet tonight
continue to hold eliquis
Assessment/Plan
-
Assessment: 78yo male with abdominal pain for five days, found to have uncomplicated sigmoid diverticulitis, first attack
Plan:
-Advance to clears. If tolerates, okay to advance to regular.
-Continue IV antibiotics, convert to oral as an outpatient
-Hold all laxatives
-Hold Eliquis, plan for starting tomorrow if continues to improve
-No plans for surgery today
-Eventual colonoscopy as an outpatient
-Trend labs/exam, will follow
Subjective Data
Subjective Data
Date of Service: August 22, 2024
Patient states he is feeling no pain. He has flatus. Denies nausea or vomiting. He is hungry.
Objective Data
-
Vital Signs
Temp Pulse Resp BP Pulse Ox
98.3 F 65 19 176/86 97
08/22/24 07:00 08/22/24 08:30 08/22/24 07:00 08/22/24 08:30 08/22/24 07:00
Intake & Output
08/21/24 08/22/24 08/23/24
06:59 06:59 06:59
Intake Total 0 / 0 1890 / 1890
Output Total 800 / 800 950 / 950
Balance -800 / -800 940 / 940
Intake:
Oral fluids 0 / 0 0 / 0
IV fluids (Total) 0 / 0 1650 / 1650
IV piggybacks 0 / 0 240 / 240
Output:
Urine, Voided 800 / 800 950 / 950
Other:
Number of approximated MODERATE 2
amounts of urine
Lab Results
08/22/24 06:39
08/22/24 06:39
Physical Exam
-
General: No Acute Distress and AOx3
Abdomen: Soft, Non Distended and Tender (very mild RLQ)
Skin: Warm and Dry
--- NOTE | 2024-08-22 09:10 | W.PN.HOSP.TC ---
Today's Communication/Plan
-
advance diet later today if tolerates liquid
Resume Eliquis tonight
Assessment / Plan
Assessment / Plan
A/p:
# Acute uncomplicated diverticulitis
Much better, no pain
Passing gas
Wood; advance diet if ok with surgery
c/w iV Abx
Pain medication with Tylenol & Dilaudid.
Appreciate colorectal help
#6 mm calcification in the region of the left posterior bladder,
- Radiologist thinks it's actually L UVJ but nonobstructing
- D/W Urologist Dr. Duque suggest 6 mm distal stone is not origin of current abdominal pain, plan for OP management.
# HX Paroxysmal A Fib
No EKG done on admission, will order one
Surgery held Eliquis, rate is regular , resume Eliquis tonight
DMT2
- Hold metformin
- add ISS low
HLD
- Hold of atorvastatin, fenofibrate
BPH
- on Flomax
Known HX : stable
HX CADS/CABG
HX M
Benign HTN
Total time spent to see the patient, examine the patient, review data and lab result, discuss treatment plan with patient, nursing staff around 55 minutes
Anticipated Discharge: Within 24 hours
Subjective/Interval History
-
Date of Service: August 22, 2024
No abd pain
Objective Data
-
Labs:
Laboratory Results
08/22/24
06:39
WBC 5.9
Hgb 12.9 L
Hct 38.1 L
Plt Count 203
Sodium 140
Potassium 3.8
Chloride 111 H
Carbon Dioxide 23
BUN 11
Creatinine 0.7
Glucose 84
Calcium 8.1 L
Vital Signs:
Vital Signs
Temp Pulse Resp BP Pulse Ox
98.3 F 65 19 176/86 97
08/22/24 07:00 08/22/24 08:30 08/22/24 07:00 08/22/24 08:30 08/22/24 07:00
I&O
08/21/24 08/22/24 08/23/24
06:59 06:59 06:59
Intake Total 0 / 0 1890 / 1890
Output Total 800 / 800 950 / 950
Balance -800 / -800 940 / 940
[2024-08-22] MEDS: NSS IV (10:49)
--- NOTE | 2024-08-22 11:34 | CM ---
Patient seen at bedside
advance diet later today if tolerates liquid
PLAN: Home, no needs anticipated when stable
[2024-08-22 11:42] LABS: Glucose - Point of Care 124 mg/dl (70-99)
[2024-08-22 15:00] VITALS: BP 175/92
[2024-08-22 16:27] LABS: Glucose - Point of Care 81 mg/dl (70-99)
--- NOTE | 2024-08-22 16:46 | PTCARENOTE ---
Pt noted with BP of 175/88 this afternoon after having AM Amlodipine. Rechecked with manual BP cuff, results consistent with prior. MD notified with no new orders at this time. Plan of care ongoing.
[2024-08-22] MEDS: FLOMAX 0.4 MG PO (17:03)
--- NOTE | 2024-08-22 17:16 | W.PN.URO.CBU ---
Today's Communication / Plan
-
Outpatient follow up scheduled for Monday
Please reach out with any questions
Assessment / Plan
-
78M with pain and nausea from acute diverticulitis
Incidentally found to have nonobstructing L distal ureteral stone
- Low suspicion that distal ureteral stone contributes to patient's ongoing symptoms: no obstruction/hydro on CT, passage of IV contrast through entire ureter on CT, back pain located in low midline at site of chronic back pain (not CVA/flank), no
common urinary/voiding/groin symptoms of an impacted distal ureteral stone, bland urinalysis
- Prefer to avoid stone surgery in the setting of active diverticulitis. Would not recommend any intervention unless persistent pain and abdominal symptoms exceed that expected for diverticulitis treatment course
- Otherwise recommend outpatient follow up for further discussion of ureteral stone and likely eventual ureteroscopy/lithotripsy after recovering from bowel infection
Outpatient follow up scheduled for Monday
Please reach out with any questions
Diagnosis
-
Date of Service: August 22, 2024
-
Patient Diagnosis:
Diverticulitis
nonobstructing L distal ureteral stone
Subjective
-
feeling well, pain resolved as of this AM
Objective
-
Vital Signs
Temp Pulse Resp BP Pulse Ox
97.8 F 60 19 175/92 98
08/22/24 15:00 08/22/24 15:00 08/22/24 15:00 08/22/24 15:00 08/22/24 15:00
Intake and Output
08/21/24 08/22/24 08/23/24
06:59 06:59 06:59
Intake Total 0 / 0 1890 / 1890 840 / 840
Output Total 800 / 800 950 / 950 350 / 350
Balance -800 / -800 940 / 940 490 / 490
Intake:
Oral fluids 0 / 0 0 / 0 840 / 840
IV fluids (Total) 0 / 0 1650 / 1650
IV piggybacks 0 / 0 240 / 240
Output:
Urine, Voided 800 / 800 950 / 950 350 / 350
Other:
Number of approximated MODERATE 2 4
amounts of urine
Laboratory Results
08/22/24 06:39
08/22/24 06:39
Physical Exam
-
General - well developed, well nourished, no acute distress
Chest - clear bilaterally
Abdomen - soft, non-tender
[2024-08-22] MEDS: ZESTRIL 10 MG PO (18:34)
--- NOTE | 2024-08-22 18:40 | PTCARENOTE ---
New order obtained for PRN 5 mg IV Hydralazine and Lisinopril 10 mg daily. One time order of Lisinopril given at 1834. Next shift will re-eval BP and administer PRN if needed.
[2024-08-22] MEDS: ELIQUIS 5 MG PO (20:58)
[2024-08-22 21:00] LABS: Glucose - Point of Care 125 mg/dl (70-99)
[2024-08-22 23:38] VITALS: BP 134/64
[2024-08-23] MEDS: UNASYN IV (03:39)
[2024-08-23 05:43] VITALS: BMI 30.8
[2024-08-23 07:00] VITALS: BP 169/75
[2024-08-23 07:33] LABS: Glucose - Point of Care 100 mg/dl (70-99)
[2024-08-23 07:55] VITALS: BMI 30.8
[2024-08-23] MEDS: PROTONIX 20 MG PO (08:07)
[2024-08-23] MEDS: ZESTRIL 10 MG PO (08:07)
[2024-08-23] MEDS: LOPRESSOR 50 MG PO (08:07)
[2024-08-23] MEDS: ELIQUIS 5 MG PO (08:07)
--- NOTE | 2024-08-23 09:23 | W.PN.HOSP.TC ---
Addendum entered and electronically signed by Kristie Morales MD 08/23/24 11:54:
Correction
On exam
Abdomen is not tender, soft, not distended, no CV tenderness.
Original Note:
Today's Communication/Plan
-
dc
Assessment / Plan
Assessment / Plan
Physical Exam
-
General: Well Developed, No Apparent Distress and Comfortable
HEENT: Normocephalic and Atraumatic
Respiratory: Clear to Auscultation
Cardiac: Regular Rhythm and S1/S2
GI: Soft, Nondistended and Tender (lower side)
Genito-urinary: Clear Urine; Negative Patton
Musculoskeletal: No Clubbing, No Cyanosis and No Edema
Skin: Warm and Dry
Neuro: AO x 3 and Nonfocal/Grossly Intact
Psych: Calm and Intact Judgement/Insight
A/p:
# Acute uncomplicated diverticulitis
Much better, no pain
Passing gas and tolerated diet
s/p IV Abx, dc on oral antibiotic to finish two weeks course.
He did not need pain medications, he took Tylenol last evening for back pain from the mattress.
For oP follow up
Appreciate colorectal help
#6 mm calcification in the region of the left posterior bladder,
- Radiologist thinks it's actually L UVJ but nonobstructing
- D/W Urologist Dr. Duque suggest 6 mm distal stone is not origin of current abdominal pain, plan for OP management.
# HX Paroxysmal A Fib
No EKG done on admission, will order one
Surgery held Eliquis, rate is regular , resumed Eliquis.
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 He was not sure why he was on short acting metoprolol once a day. Previously he was on extended release. Patient was noted to have elevated systolic
blood pressure around 160-170 most of the time. He was started on lisinopril. Patient was counseled regarding potential side effects of lisinopril including cough, angioedema, hyperkalemia and renal injury. He verbalized understanding. Patient
was given a prescription to do blood work in 5 to 7 days postdischarge.
DMT2
Resume outpatient medications
HLD
Resume atorvastatin, fenofibrate
BPH
- on Flomax
Known HX : stable
HX CADS/CABG
HX M
Total discharge time spent to see the patient, examine the patient, review data and lab result, discuss discharge plan with patient, nursing staff around 65 minutes
Anticipated Discharge: Today
Subjective/Interval History
-
Date of Service: August 23, 2024
No chest pain
No sob
No fevers
Objective Data
-
Vital Signs:
Vital Signs
Temp Pulse Resp BP Pulse Ox
97.6 F 61 19 169/75 97
08/23/24 07:00 08/23/24 08:07 08/23/24 07:00 08/23/24 08:07 08/23/24 07:00
I&O
08/22/24 08/23/24 08/24/24
06:59 06:59 06:59
Intake Total 1890 / 1890 1560 / 1560
Output Total 950 / 950 350 / 350
Balance 940 / 940 1210 / 1210
[2024-08-23 09:50] VITALS: BP 137/63
--- NOTE | 2024-08-23 10:01 | CM ---
Patient seen at bedside with
IMM explained & signed, in chart
PLAN: home, no needs
to transport
--- NOTE | 2024-08-23 11:54 | W.DCSUMMARY ---
Discharge Summary
Discharge Data
Date of Admission: 08/20/24
Date of Discharge: 08/23/24
-
Pending Results: No
Hospital Course
78 years old male presented to the emergency room with abdominal pain, nausea. Scan of the abdomen pelvis showed diverticulitis. Patient was admitted to the hospital for intravenous antibiotics. He was evaluated by colorectal surgery.
Recommended bowel rest, IV fluid and IV antibiotics. His pain subsided. He he was started on liquid diet. Diet was advanced slowly with no recurrence of symptoms. Scan of the pelvis also showed 6 mm left distal ureteral stone. He was evaluated
by urologist. He did not have hydronephrosis. No signs of urinary retention. Urologist recommended outpatient follow-up. Patient was noted to have elevated blood pressure. He was started on new medication called lisinopril. He was counseled
regarding potential side effects of lisinopril including angioedema, cough, hyperkalemia and renal injury. He was given a prescription to repeat blood work in outpatient setting and was advised to follow-up with his outpatient doctors to monitor
his blood pressure. Surgery recommended outpatient follow-up. Patient was discharged on oral antibiotics to finish the course. He remained hemodynamically stable and was discharged home in stable condition.
Discharge Plan
-
Patient Disposition: Home (Routine Discharge)
Discharge Diagnosis/Procedures: Acute diverticulitis
You are seen by colorectal surgery. You had IV antibiotics. You received IV fluid.
Surgery recommended repeat colonoscopy after recovery from diverticulitis; to discuss with patient at follow-up
Hypertension, uncontrolled
We added new medicine called Lisinopril, MARTHA inhibitor. Potential side effects include: cough, angioedema, high potassium, kidney injury. DO blood work in 5-7 days to monitor. Take to your family/ cardiology doctors about Metoprolol dose.
Diet: As tolerated and Diabetic, Carb Controlled
Referrals:
Solomon Parker MD [Family Provider, Internal Medicine]
Dion Duque MD [Active, Urology] - 08/27/24
Barrie Payne MD [Active, ColoRectal] - in two weeks
Prescriptions:
New
amoxicillin-pot clavulanate 875-125 mg tablet
1 tab PO BID Qty: 22 0RF
lisinopril 10 mg Tablet
10 mg PO DAILY Qty: 30 0RF
Continued
omeprazole 40 MG capsule,delayed release(DR/EC)
40 mg PO HS
ascorbate calcium (vitamin C) 500 mg Tablet
500 mg PO DAILY Qty: 0
omega 9-cuz-blr-fish oil [Fish Oil] 1,000 (120-180) mg Capsule
1 cap PO DAILY Qty: 0
tadalafil [Cialis] 5 MG tablet
5 mg PO DAILYPRN PRN (Reason: ed)
acetaminophen 325 MG tablet
650 mg PO Q4HPRN PRN (Reason: mild pain) 0RF
fenofibrate nanocrystallized 145 MG tablet
145 mg PO HS 0RF
metformin 500 mg Tablet Extended Release 24 Hr
500 mg PO DAILY
atorvastatin [Lipitor] 80 mg Tablet
80 mg PO QPM
therapeutic multivitamin Tablet
1 tab PO DAILY
tamsulosin [Flomax] 0.4 mg Capsule
0.4 mg PO QPM
metoprolol tartrate 50 mg Tablet
50 mg PO DAILY
cholecalciferol (vitamin D3) [Vitamin D3] 10 mcg (400 unit) Tablet
10 mcg PO DAILY
coQ10 (ubiquinol) 100 mg Capsule
100 mg PO DAILY
Eliquis 5 mg Tablet
5 mg PO BID
Discharge Orders:
Discharge Patient (As Directed); Ordered 08/23/24
Ordered By: Kristie Morales
Discharge Date and Time
Discharge Date/Time: 08/23/24 10:07
Print Language: ROMANIAN
[2024-08-23 19:34] LABS: Hepatitis C Antibody Negative (Negative)
== END 2024-08-23 10:07 | disposition home or self-care (01) | DRG 392 ==
LOC: 3 WEST ACU 15:41
PROVIDERS: Physician Assistant; ADMITTING PHYSICIAN Internal Medicine; ATTENDING PHYSICIAN Internal Medicine; CONSULT PHYSICIAN Urology; EMERGENCY PHYSICIAN Emergency Medicine; FAMILY PHYSICIAN Internal Medicine; OTHER PHYSICIAN Surgery
DX: K57.32 Diverticulitis of large intestine without perforation or abscess without bleeding (principal); N20.1 Calculus of ureter; I10 Essential (primary) hypertension; I48.0 Paroxysmal atrial fibrillation; E78.00 Pure hypercholesterolemia, unspecified; E11.9 Type 2 diabetes mellitus without complications; N40.0 Benign prostatic hyperplasia without lower urinary tract symptoms; G89.29 Other chronic pain; M54.9 Dorsalgia, unspecified; I25.10 Atherosclerotic heart disease of native coronary artery without angina pectoris; R11.0 Nausea; T37.8X5A Adverse effect of other specified systemic anti-infectives and antiparasitics, initial encounter; Y92.9 Unspecified place or not applicable; I25.2 Old myocardial infarction; Z87.891 Personal history of nicotine dependence; Z79.01 Long term (current) use of anticoagulants; Z95.1 Presence of aortocoronary bypass graft; Z79.84 Long term (current) use of oral hypoglycemic drugs; Z80.0 Family history of malignant neoplasm of digestive organs
CPT/HCPCS: 74177; 80048; 80053; 81003; 81015; 82962; 83036; 83605; 83690; 85025; 85027; 86803; 87086; 93005; 96361; 96365; 96375; 99284; 99285; Q9967

== ENCOUNTER 2024-08-29 06:21 | Day surgery (SDC) | payer MEDICARE, BC, SELFPAY ==
[2024-08-29] VITALS (10 sets, daily range): BP systolic 131–181; BP diastolic 74–100; BMI 30.7
[2024-08-29 10:46] LABS: Glucose - Point of Care 122 mg/dl (70-99)
[2024-08-29] MEDS: NORMOSOL-R/PLASMALYTE-A 1000 IV (10:52)
[2024-08-29 12:49] LABS: Glucose - Point of Care 121 mg/dl (70-99)
[2024-08-29] MEDS: SUBLIMAZE 25 MCG IV (13:14)
== END 2024-08-29 14:25 | disposition home or self-care (01) ==
LOC: SDS 06:21
PROVIDERS: ATTENDING PHYSICIAN Urology
DX: N20.2 Calculus of kidney with calculus of ureter (principal)
CPT/HCPCS: 52356; 74018; 76000; 82365; 82962; C1894; C2617

== ENCOUNTER 2025-01-07 06:30 | Day surgery (SDC) | payer MEDICARE, BC, SELFPAY ==
[2025-01-07 07:25] LABS: Glucose - Point of Care 131 mg/dl (70-99)
== END 2025-01-07 09:04 | disposition home or self-care (01) ==
LOC: GI 06:30
PROVIDERS: ATTENDING PHYSICIAN Surgery
DX: Z12.11 Encounter for screening for malignant neoplasm of colon (principal); K64.8 Other hemorrhoids; K57.30 Diverticulosis of large intestine without perforation or abscess without bleeding; D12.3 Benign neoplasm of transverse colon; K63.5 Polyp of colon
CPT/HCPCS: 45385; 45380; 82962; 88305